=== PATIENT | male | born 1960 | race Caucasian/White ===

== ENCOUNTER 2018-06-21 18:33 | Emergency (ER) | payer OTHER ==
[2018-06-21] MEDS ORDERED: Tetracaine 0.5% Ophth Soln 15 mL Soln RIGHT EYE ONE (19:27)
[2018-06-21] MEDS ORDERED: Fluorescein Sodium 1 mg Ophth Strip RIGHT EYE ONE (19:28)
[2018-06-21] MEDS ORDERED: Fluorescein Sodium 1 mg Ophth Strip ONE (19:37)
[2018-06-21] MEDS ORDERED: TETRACAINE HCL 0.5% OPHTH SOLN 4ML BOTTLE ONE (19:38)
[2018-06-21] MEDS ORDERED: Dacriose Ophth Soln 120 mL Bottle ONE (19:45)
--- NOTE | 2018-06-21 19:48 | ED Physician Chart ---
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 Allergies:: Allergies Allergy/AdvReac Type Severity Reaction Status Date / Time No Known Allergies Allergy Verified 06/21/18 19:21 Vitals:: Vital Signs - 8 hr 06/21/18 19:24 Temp 98.5 F HR 94 RR 16 BP 157/79 O2 Sat % 100 Historian:: Patient Review:: Nurse's Note Reviewed ED Review of Systems - Review of Systems General/Constitutional: No fever, No chills, No weight loss, No weakness, No diaphoresis, No edema, No loss of appetite Skin: No skin lesions, No rash, No bruising Head: No headache, No light-headedness Eyes: No loss of vision, Pain, No diplopia, Other (foreign body sensation) ENT: No earache, No nasal drainage, No sore throat, No tinnitus Neck: No neck pain, No swelling, No thyromegaly, No stiffness, No mass noted Cardio Vascular: No chest pain, No palpitations, No PND, No orthopnea, No edema Pulmonary: No SOB, No cough, No sputum, No wheezing GI: No nausea, No vomiting, No diarrhea, No pain, No melena, No hematochezia, No constipation, No hematemesis G/U: No dysuria, No frequency, No hematuria Musculoskeletal: No bone or joint pain, No back pain, No muscle pain Endocrine: No polyuria, No polydipsia Psychiatric: No prior psych history, No depression, No anxiety, No suicidal ideation Hematopoietic: No bruising, No lymphadenopathy Allergic/Immuno: No urticaria, No angioedema Neurological: No syncope, No focal symptoms, No weakness, No paresthesia, No headache, No seizure, No dizziness, No confusion, No vertigo ED Past Medical History - Past Medical History Obtainable: Yes Past Medical History: No significant medical hx Family Medical History - Family Member Mother Ethnicity: Living Status: Hx Family Stroke: Yes ED Physical Exam - Physical Examination General/Constitutional: Awake, Well-developed, well-nourished, Alert, GCS 15, Non-toxic appearing, Ambulatory Other Gen/Cons comments:: in pain with respect to his right eye. Head: Atraumatic Eyes: PERRL, EOMI Other Eyes comments:: Right sclerae injected. Right eye fluorescin uptake at 12 oclock that measures 2 mm in length by 1 mm in width. Lower lid: no foreign body. Upper lid: small piece of what appears to be dirt (not metal) that is present and was removed. photophobic on the right. Skin: Nl inspection, No rash, No skin lesions, No ecchymosis, Well hydrated, No lymphadenopathy ENMT: External ears, nose nl Neck: Nontender, No nuchal rigidity, No stridor Respiratory: Nl effort/Exclusion ED Assessment - Procedures Procedures:: fluorescin test uptake at 12 p.m that measures 2 mm x 1 mm. Removal of dirt/foreign body with a moistened q tip from underneath the upper lid that was everted. ED Septic Shock - . Is Septic Shock (SBP<90, OR Lactate>4 mmol\L) present?: No - <6hrs of presentation: Vital Signs: Vital Signs - 8 hr 06/21/ 19:24 Temp 98.5 F HR 94 RR 16 BP 157/79 O2 Sat % 100 ED Reassessment (Disposition) - Reassessment Reassessment Condition:: Improved - Diagnosis Diagnosis:: Right corneal abrasion Right upper lid foreign body/dirt (which was removed with a moistened q tip). - Aftercare/Follow up Instructions Aftercare/Follow-Up Instructions:: Refer to Discharge Instructions Notes:: follow up with an fat pressroom worker since this is a 2 mm x 1 mm corneal abrasion at 12 oclock to prevent this from progressing to an ulcer. Medication Prescribed:: Ciprofloxacin eye drops. - Patient Disposition Discharge/Transfer:: Home Condition at Disposition:: Stable, Improved
[2018-06-21] MEDS ORDERED: Dacriose Ophth Soln 120 mL Bottle RIGHT EYE ONE (20:41)
== END 2018-06-21 21:00 | disposition home or self-care (01) ==
LOC: ER 18:33
DX: T15.01XA Foreign body in cornea, right eye, initial encounter (principal); X58.XXXA Exposure to other specified factors, initial encounter; Y93.89 Activity, other specified; Y92.89 Other specified places as the place of occurrence of the external cause; Y99.0 Civilian activity done for income or pay
CPT/HCPCS: Z7502

== ENCOUNTER 2018-12-29 12:18 | Inpatient (IN) | payer BC, OTHER ==
[2018-12-29] MEDS ORDERED: Sodium Chloride 0.9% 1,000 ML IV ONE (12:21)
[2018-12-29 12:48] LABS: % BASOPHILS 0.7 % (0.0-2.0); % EOSINOPHILS 0.9 % (0.0-5.0); % LYMPHOCYTES 21.1 % (20.0-50.0); % MONOCYTES 5.3 % (2.0-10.0); BASOPHILE ABSOLUTE 0.1 Th/cumm (0-0.2); EOSINOPHILE ABSOLUTE 0.1 Th/cmm (0.1-0.4); HEMATOCRIT 45.6 % (41.0-60); HEMOGLOBIN 15.4 gm/dL (12-16); LYMPHOCYTE ABSOLUTE 1.7 Th/cmm (1.5-3.0); MEAN CELL VOLUME 88.9 fl (80-99); MEAN CORPUSCULAR HGB CONC 33.7 pg (28.0-36.0); MEAN PLATELET VOLUME 8.1 fl; MONOCYTE ABSOLUTE 0.4 Th/cmm (0.3-1.0); NEUTROPHILE ABSOLUTE 5.9 Th/cmm (1.8-8.0); PLATELET COUNT 219 Th/cmm (150-400); RED BLOOD COUNT 5.13 Mil/cmm (4.30-5.70); RED CELL DISTRIBUTION WIDTH 11.8 % (11.5-20.0); WHITE BLOOD COUNT 8.2 Th/cmm (4.8-10.8)
[2018-12-29 12:59] LABS: INR 0.97 (0.5-1.4); PROTHROMBIN TIME (TEST) 10.1 SECONDS (9.5-11.5)
[2018-12-29 13:08] LABS: AMYLASE SERUM 51 U/L (29-103); LIPASE 18 U/L (11-82)
[2018-12-29 13:10] LABS: ALB/GLOB RATIO 1.3 (1.0-1.8); ALBUMIN 4.3 gm/dL (4.2-5.5); ALKALINE PHOSPHATASE 75 U/L (34-104); ANION GAP 17.6 (7.0-16.0); BILIRUBIN,TOTAL 0.5 mg/dL (0.3-1.0); BUN - UREA NITROGEN 16 mg/dL (7-25); CALCIUM SERUM 9.5 mg/dL (8.6-10.3); CARBON DIOXIDE 21.8 mEq/L (21.0-31.0); CHLORIDE 99 mEq/L (98-107); CHOLESTEROL 256 mg/dL (<200); CREATININE - SERUM 0.9 mg/dL (0.7-1.3); CREATININE KINASE 132 U/L (30-223); GFR AFRICAN-AMERICAN > 60.0 ml/min (>90); GFR NON AFRICAN-AMERICAN > 60.0 ml/min; GLUCOSE 357 mg/dL (70-105); HDL -HIGH DENSITY LIPOPROTEIN 57 mg/dL (23-92); POTASSIUM SERUM 3.4 mEq/L (3.5-5.1); SGOT 14 U/L (13-39); SGPT/ALT 18 U/L (7-52); SODIUM SERUM 135 mEq/L (136-145); TOTAL PROTEIN,SERUM 7.6 gm/dL (6.0-8.3); TRIGLYCERIDES 125 mg/dL (<150)
[2018-12-29 13:16] LABS: DDIMER QUANT < 100 ng/mL (100-400)
[2018-12-29 14:08] LABS: URINE SOURCE CLEAN C
[2018-12-29 14:11] LABS: URINE BILIRUBIN NEGATIVE (NEGATIVE); URINE BLOOD NEGATIVE (NEGATIVE); URINE GLUCOSE (UA) >=1000 mg/dL (NEGATIVE); URINE KETONE 15 mg/dL (NEGATIVE); URINE LEUKOCYTE ESTERASE NEGATIVE (NEGATIVE); URINE MICROSCOPIC INDICATED? YES; URINE NITRATE NEGATIVE (NEGATIVE); URINE PH 6.5 (4.6 - 8.0); URINE PROTEIN 30 mg/dL (NEGATIVE); URINE UROBILINOGEN 0.2 E.U./dL (0.2 - 1.0)
[2018-12-29 14:15] LABS: URINE COLOR YELLOW
[2018-12-29 14:16] LABS: URINE CLARITY CLEAR (CLEAR)
[2018-12-29 14:19] LABS: URINE BACTERIA OCCASIONAL /hpf (NONE SEEN); URINE EPITHELIAL CELLS FEW /lpf (FEW); URINE WBC 0-2 /hpf (0-5)
--- NOTE | 2018-12-29 14:27 | ED Physician Chart ---
ED Chief Complaint/HPI - Patient Information Date Seen:: 12/29/18 Time Seen:: 12:35 Chief Complaint:: Abdominal Pain History of Present Illness:: onset x 3 days of intermittent, crampy, diffuse abdominal pain, N/V/D, hematemesis, weakness, dizziness, vertigo, and fatigue; pt denies trauma, h/as, neck pain, cough, C/P, SOB, A/C, or urinary s/s Allergies:: Allergies Allergy/AdvReac Type Severity Reaction Status Date / Time No Known Allergies Allergy Verified 06/21/18 19:21 Vitals:: Vital Signs - 8 hr 12/29/18 12/29/18 12:36 12:47 Temp 97.4 F HR 99 84 RR 23 18 BP 174/98 174/98 O2 Sat % 100 98 Historian:: Patient, Friend Review:: Nurse's Note Reviewed, Old Chart Reviewed ED Review of Systems - Review of Systems General/Constitutional: No fever, No chills, No weight loss, No weakness, No diaphoresis, No edema, No loss of appetite Skin: No skin lesions, No rash, No bruising Head: No headache, No light-headedness Eyes: No loss of vision, No pain, No diplopia ENT: No earache, No nasal drainage, No sore throat, No tinnitus Neck: No neck pain, No swelling, No thyromegaly, No stiffness, No mass noted Cardio Vascular: No chest pain, No palpitations, No PND, No orthopnea, No edema Pulmonary: No SOB, No cough, No sputum, No wheezing GI: No nausea, No vomiting, No diarrhea, No pain, No melena, No hematochezia, No constipation, No hematemesis G/U: No dysuria, No frequency, No hematuria, No nacturia Musculoskeletal: No bone or joint pain, No back pain, No muscle pain Endocrine: No polyuria, No polydipsia Psychiatric: No prior psych history, No depression, No anxiety, No suicidal ideation, No homicidal ideation, No auditory hallucination, No visual hallucination Hematopoietic: No bruising, No lymphadenopathy Allergic/Immuno: No urticaria, No angioedema Neurological: No syncope, No focal symptoms, No weakness, No paresthesia, No headache, No seizure, No dizziness, No confusion, No vertigo ED Past Medical History - Past Medical History Obtainable: Yes Past Medical History: DM Family History: Diabetes Melitus, HTN Social History: Non Smoker, No Alcohol, No Drug Use, Surgical History: None Psychiatricy History: None Medication: Reviewed Family Medical History - Family Member Mother History Unknown: Yes Ethnicity: Living Status: Hx Family Stroke: Yes ED Physical Exam - Physical Examination General/Constitutional: Awake, Well-developed, well-nourished, Alert, No distress, GCS 15, Non-toxic appearing, Ambulatory Head: Atraumatic Eyes: Lids, conjuctiva normal, PERRL, EOMI Skin: Nl inspection, No rash, No skin lesions, No ecchymosis, Well hydrated, No lymphadenopathy ENMT: External ears, nose nl, TM canals nl, Nasal exam nl, Lips, teeth, gums nl , Oropharynx nl, Tonsils nl Neck: Nontender, Full ROM w/o pain, No JVD, No nuchal rigidity, No bruit, No mass, No stridor Other Neck comments:: supple; no meningeal signs; no cervical tenderness Respiratory: Nl effort/Exclusion, Clear to Auscultation, No Wheeze/Rhonchi/Rales Cardio Vascular: RRR, No murmur, gallop, rubs, NL S1 S2, Carotid/Femoral/Distal pulses equal bilaterally GI: No tenderness/rebounding/guarding, No organomegaly, No hernia, Normal BS's, Nondistended, No mass/bruits, No McBurney tenderness, Rectum exam nl Other GI comments:: no pulsatile masses : No CVA tenderness Extremities: No tenderness or effusion, Full ROM, normal strength in all extremities, No edema, Normal digits & nails Neuro/Psych: Alert/oriented, DTR's symmetric, Normal sensory exam, Normal motor strength, Judgement/insight normal, Mood normal, Normal gait, No focal deficits Misc: Normal back, No paraspinal tenderness ED Labs/Radiology/EKG Results - Lab Results Results: Laboratory Tests 12/29/18 12/29/18 12/29/18 12:34 12:34 12:34 WBC 8.2 RBC 5.13 Hgb 15.4 Hct 45.6 MCV 88.9 MCH 30.0 MCHC Differential 33.7 RDW 11.8 Plt Count 219 MPV 8.1 Neutrophils % 72.0 Lymphocytes % 21.1 Monocytes % 5.3 Eosinophils % 0.9 Basophils % 0.7 PT 10.1 INR 0.97 D-Dimer < 100 L Sodium 135 L Potassium 3.4 L Chloride 99 Carbon Dioxide 21.8 Anion Gap 17.6 H BUN 16 Creatinine 0.9 Est GFR ( Amer) > 60.0 Est GFR (Non-Af Amer) > 60.0 BUN/Creatinine Ratio 17.8 Glucose 357 H Calcium 9.5 Total Bilirubin 0.5 AST 14 ALT 18 Alkaline Phosphatase 75 Creatine Kinase 132 Troponin I B-Natriuretic Peptide Total Protein 7.6 Albumin 4.3 Globulin 3.3 Albumin/Globulin Ratio 1.3 Triglycerides 125 Cholesterol 256 H LDL Cholesterol Direct 176 HDL Cholesterol 57 Amylase Lipase Urine Source Urine Color Urine Clarity Urine pH Ur Specific Homer Urine Protein Urine Glucose (UA) Urine Ketones Urine Blood Urine Nitrate Urine Bilirubin Urine Urobilinogen Ur Leukocyte Esterase Urine RBC Urine WBC Ur Epithelial Cells Urine Bacteria 12/29/18 12/29/18 12/29/18 12:34 12:34 12:34 WBC RBC Hgb Hct MCV MCH MCHC Differential RDW Plt Count MPV Neutrophils % Lymphocytes % Monocytes % Eosinophils % Basophils % PT INR D-Dimer Sodium Potassium Chloride Carbon Dioxide Anion Gap BUN Creatinine Est GFR ( Amer) Est GFR (Non-Af Amer) BUN/Creatinine Ratio Glucose Calcium Total Bilirubin AST ALT Alkaline Phosphatase Creatine Kinase Troponin I 0.01 B-Natriuretic Peptide 9.7 Total Protein Albumin Globulin Albumin/Globulin Ratio Triglycerides Cholesterol LDL Cholesterol Direct HDL Cholesterol Amylase 51 Lipase 18 Urine Source Urine Color Urine Clarity Urine pH Ur Specific Homer Urine Protein Urine Glucose (UA) Urine Ketones Urine Blood Urine Nitrate Urine Bilirubin Urine Urobilinogen Ur Leukocyte Esterase Urine RBC Urine WBC Ur Epithelial Cells Urine Bacteria 12/29/18 13:30 WBC RBC Hgb Hct MCV MCH MCHC Differential RDW Plt Count MPV Neutrophils % Lymphocytes % Monocytes % Eosinophils % Basophils % PT INR D-Dimer Sodium Potassium Chloride Carbon Dioxide Anion Gap BUN Creatinine Est GFR ( Amer) Est GFR (Non-Af Amer) BUN/Creatinine Ratio Glucose Calcium Total Bilirubin AST ALT Alkaline Phosphatase Creatine Kinase Troponin I B-Natriuretic Peptide Total Protein Albumin Globulin Albumin/Globulin Ratio Triglycerides Cholesterol LDL Cholesterol Direct HDL Cholesterol Amylase Lipase Urine Source CLEAN C Urine Color YELLOW Urine Clarity CLEAR Urine pH 6.5 Ur Specific Homer 1.015 Urine Protein 30 H Urine Glucose (UA) >=1000 H Urine Ketones 15 H Urine Blood NEGATIVE Urine Nitrate NEGATIVE Urine Bilirubin NEGATIVE Urine Urobilinogen 0.2 Ur Leukocyte Esterase NEGATIVE Urine RBC 2-5 H Urine WBC 0-2 Ur Epithelial Cells FEW Urine Bacteria OCCASIONAL Comments:: Reviewed - Radiology Results Comments:: NAD - EKG Interpretations EKG Time:: 12:43 Rate & Rhythm: 85; NSR Comments:: non-specific st-t changes ED Septic Shock - . Is Septic Shock (SBP<90, OR Lactate>4 mmol\L) present?: No - <6hrs of presentation: Vital Signs: Vital Signs - 8 hr 12/29/18 12/29/18 12:36 12:47 Temp 97.4 F HR 99 84 RR 23 18 BP 174/98 174/98 O2 Sat % 100 98 ED Reassessment (Disposition) - Reassessment Reassessment Condition:: Improved - Diagnosis Diagnosis:: Dizziness; Vertigo; N/V/D; GI Bleed; Abdominal Pain; AGE; Dehydration; UTI; Hypokalemia; Hypertension; DM; Hyperglycemia; Hyperlipidemia - Aftercare/Follow up Instructions Aftercare/Follow-Up Instructions:: Counseled pt regarding lab results/diagnosis & need follow up, Counseled pt & family regarding lab results/diagnosis & need follow up - Patient Disposition Discharge/Transfer:: Acute Care w/in this hosp Accepting Physician:: Dr. Gan Time Called:: 1400 Time Responded:: 14:00 Admitted to:: Telemetry Spoke to:: Dr. Gan Admitting Medical Physician:: Dr. Gan Condition at Disposition:: Stable, Improved
[2018-12-29] MEDS ORDERED: cefTRIAXone 1 GM in Sodium Chloride 0.9% 50 ML IV ONE (14:34)
[2018-12-29] MEDS ORDERED: Potassium Chloride 20 mEq ER Tab PO ONE ×2 (14:36→15:00)
[2018-12-29] MEDS ORDERED: INSULIN HUMAN REGULAR 100 UNITS/ML UNIT SUBQ ONE (14:36)
[2018-12-29] MEDS ORDERED: NITROGLYCERIN OINT 2% 1 INCH PACKET TP STA (16:36)
[2018-12-29] MEDS ORDERED: NITROGLYCERIN OINT 2% 1 INCH PACKET TP ONE (16:42)
[2018-12-29 17:30] VITALS: BP 173/94
[2018-12-29] MEDS ORDERED: Morphine Sulfate 2 mg/mL 1mL Syr IVP PRN ×2 (18:19→18:20)
[2018-12-29] MEDS ORDERED: D5-0.45NS 1,000 ML IV SCH (19:00)
[2018-12-29] MEDS: INSULIN LISPRO 100 UNIT/ML VIAL SUBQ SCH (21:37)
[2018-12-30] MEDS ORDERED: INSULIN LISPRO 100 UNIT/ML VIAL SUBQ SCH
[2018-12-30 05:39] LABS: INR 0.98 (0.5-1.4); PROTHROMBIN TIME (TEST) 10.2 SECONDS (9.5-11.5)
[2018-12-30 05:42] LABS: ANION GAP 9.5 (7.0-16.0); BUN - UREA NITROGEN 13 mg/dL (7-25); CALCIUM SERUM 9.1 mg/dL (8.6-10.3); CARBON DIOXIDE 26.7 mEq/L (21.0-31.0); CHLORIDE 103 mEq/L (98-107); CREATININE - SERUM 0.9 mg/dL (0.7-1.3); GFR AFRICAN-AMERICAN > 60.0 ml/min (>90); GFR NON AFRICAN-AMERICAN > 60.0 ml/min; GLUCOSE 286 mg/dL (70-105); POTASSIUM SERUM 4.2 mEq/L (3.5-5.1); SODIUM SERUM 135 mEq/L (136-145)
[2018-12-30 05:46] LABS: % BASOPHILS 0.8 % (0.0-2.0); % EOSINOPHILS 1.3 % (0.0-5.0); % LYMPHOCYTES 20.5 % (20.0-50.0); % MONOCYTES 7.1 % (2.0-10.0); % NEUTROPHILS 70.3 % (40.0-80.0); BASOPHILE ABSOLUTE 0.1 Th/cumm (0-0.2); EOSINOPHILE ABSOLUTE 0.1 Th/cmm (0.1-0.4); HEMATOCRIT 43.5 % (41.0-60); HEMOGLOBIN 14.2 gm/dL (12-16); LYMPHOCYTE ABSOLUTE 2.1 Th/cmm (1.5-3.0); MEAN CELL VOLUME 89.7 fl (80-99); MEAN CORPUSCULAR HEMOGLOBIN 29.3 pg (26.0-30.0); MEAN CORPUSCULAR HGB CONC 32.6 pg (28.0-36.0); MONOCYTE ABSOLUTE 0.7 Th/cmm (0.3-1.0); NEUTROPHILE ABSOLUTE 7.1 Th/cmm (1.8-8.0); PLATELET COUNT 229 Th/cmm (150-400); RED BLOOD COUNT 4.85 Mil/cmm (4.30-5.70); RED CELL DISTRIBUTION WIDTH 11.9 % (11.5-20.0); WHITE BLOOD COUNT 10.1 Th/cmm (4.8-10.8)
[2018-12-30] MEDS: INSULIN LISPRO 100 UNIT/ML VIAL SUBQ SCH (06:43)
--- NOTE | 2018-12-30 08:31 | Diagnostic Imaging Report ---
CHEST X-RAY: AP view INDICATION: Cough COMPARISON: None FINDINGS: Mild chronic lung changes are noted. There is elevation of right hemidiaphragm. There is no focal consolidation or pleural effusions The heart is normal in size. Degenerative changes of the spine are noted. IMPRESSION: Mild chronic lung changes. No focal consolidation identified. Elevation of the right hemidiaphragm.
--- NOTE | 2018-12-30 09:13 | Diagnostic Imaging Report ---
CT abdomen and pelvis without intravenous contrast Indication: Abdominal pain Comparison: None, Technique: Axial images were obtained from the lung bases to the bilateral proximal femurs without IV contrast. Coronal reconstructions were made. total DLP: 520, CTDI9.9 FINDINGS: Hypoventilatory and atelectatic changes of the lung bases are noted. Assessment of the solid organs is limited due to lack of IV contrast. There is fatty infiltration of the liver. No focal lesions. Mild distended gallbladder is noted with no radiopaque gallstones identified. No focal splenic lesions. Mild pancreatic gland atrophy is noted with no focal lesions. No focal adrenal lesions. Nonspecific bowel perinephric inflammatory changes are noted. No hydronephrosis or nephrolithiasis. Distended urinary bladder is seen with urinary bladder wall thickening greatest anteriorly. Mild prominent prostate gland is noted. There is copious amount of stool throughout the colon. No appendicitis. Nonspecific air distended loops of small bowel are seen along left hemiabdomen. No free air free fluid. Moderate atherosclerosis is noted. There is partial lumbarization of S1. There are pars defects at L5/S1 with 5 mm anterolisthesis seen at this level. Diffuse degenerative changes spine are noted. IMPRESSION: Copious stool throughout the colon. Nonspecific gas-filled small bowel along the left hemiabdomen. Mild ileus may be considered Urinary bladder wall thickening greatest anteriorly. Inflammatory or infiltrative process cannot be excluded, please correlate clinically Mildly prominent prostate gland. Mild distended gallbladder. No evidence of Radiopaque gallstones. Consider follow-up with ultrasound Hepatic steatosis. Atherosclerotic vascular disease. Pars defects at L5/S1 with 5 mm anterolisthesis at this level. There is also partial lumbarization of S1. Diffuse degenerative changes are noted including bilateral neural foraminal narrowing at L5/S1.
[2018-12-30] MEDS: INSULIN LISPRO SLIDING SCALE 100 UNITS/ML UNIT SUBQ SCH ×2 (17:48→20:47)
--- NOTE | 2018-12-30 18:55 | History & Physical ---
ADMIT DATE: 12/30/2018 CHIEF COMPLAINT: Abdominal pain. HISTORY OF PRESENT ILLNESS: This is a 58-year-old male with a 3-day history of abdominal pain according to the patient. Three days ago, he started to have intermittent crampy like abdominal pain associated with constipation. Per daughter at bedside, the patient has not had a bowel movement for about 3 to 4 days. No reports of any nausea or vomiting. PAST MEDICAL HISTORY: Diabetes. FAMILY HISTORY: Noncontributory. SOCIAL HISTORY: The patient denies any alcohol, illicit drug use, tobacco smoking. SURGICAL HISTORY: None. MEDICATIONS: See medication list. REVIEW OF SYSTEMS: GENERAL: Denies any fever or chills. CARDIOVASCULAR: Denies any chest pain. RESPIRATORY: Denies any shortness of breath. GASTROINTESTINAL: The patient complains of abdominal pain. GENITOURINARY: Denies increased frequency or dysuria. NEUROLOGIC: Denies headaches, seizure, or syncope. All systems are reviewed and are negative. PHYSICAL EXAMINATION: GENERAL: The patient is a well-developed, well-nourished, in no apparent distress. VITAL SIGNS: Temperature 97.2, heart rate 82, blood pressure 144/85, respirations 70, O2 98%. HEENT: Head normocephalic, atraumatic. NECK: Supple. No mass. LUNGS: Clear bilaterally. ABDOMEN: Soft, nontender. LABORATORY DATA: WBC 10.1, H and H 14.2 and 42.5, platelet of 229. Sodium 135, potassium 4.2, chloride 103, BUN 13, creatinine 0.9. DIAGNOSTIC DATA: The patient had a CT of the abdomen and pelvis done. IMPRESSION: Copious stool throughout the colon, nonspecific gas filled small bowel along the left hemiabdomen, mild ileus may be considered, urinary bladder wall thickening, greatest anteriorly, mild prominent prostate gland, mild distended gallbladder, no evidence of radiopaque gallstones. Consider follow up with ultrasound, hepatic steatosis, atherosclerotic vascular disease. ASSESSMENT: Abdominal pain, weakness, constipation, diabetes. PLAN: The patient to be admitted to the telemetry unit. We will get GI consultation. We will keep the patient n.p.o. for now, IV fluids for hydration. We will monitor the patient's glucose level. We will continue to monitor this patient. JOB# [id number]
[2018-12-31 05:26] LABS: % BASOPHILS 0.8 % (0.0-2.0); % EOSINOPHILS 0.9 % (0.0-5.0); % LYMPHOCYTES 24.6 % (20.0-50.0); % MONOCYTES 5.9 % (2.0-10.0); % NEUTROPHILS 67.8 % (40.0-80.0); BASOPHILE ABSOLUTE 0.1 Th/cumm (0-0.2); EOSINOPHILE ABSOLUTE 0.1 Th/cmm (0.1-0.4); HEMATOCRIT 43.8 % (41.0-60); HEMOGLOBIN 14.7 gm/dL (12-16); LYMPHOCYTE ABSOLUTE 2.3 Th/cmm (1.5-3.0); MEAN CELL VOLUME 89.2 fl (80-99); MEAN CORPUSCULAR HGB CONC 33.6 pg (28.0-36.0); MEAN PLATELET VOLUME 8.2 fl; MONOCYTE ABSOLUTE 0.6 Th/cmm (0.3-1.0); NEUTROPHILE ABSOLUTE 6.4 Th/cmm (1.8-8.0); PLATELET COUNT 243 Th/cmm (150-400); RED BLOOD COUNT 4.91 Mil/cmm (4.30-5.70); RED CELL DISTRIBUTION WIDTH 11.6 % (11.5-20.0); WHITE BLOOD COUNT 9.5 Th/cmm (4.8-10.8)
[2018-12-31 05:40] LABS: INR 1.03 (0.5-1.4); PROTHROMBIN TIME (TEST) 10.7 SECONDS (9.5-11.5)
[2018-12-31 05:43] LABS: ANION GAP 12.3 (7.0-16.0); BUN - UREA NITROGEN 10 mg/dL (7-25); CALCIUM SERUM 8.7 mg/dL (8.6-10.3); CARBON DIOXIDE 23.4 mEq/L (21.0-31.0); CHLORIDE 106 mEq/L (98-107); CREATININE - SERUM 0.7 mg/dL (0.7-1.3); GFR AFRICAN-AMERICAN > 60.0 ml/min (>90); GFR NON AFRICAN-AMERICAN > 60.0 ml/min; GLUCOSE 210 mg/dL (70-105); POTASSIUM SERUM 3.7 mEq/L (3.5-5.1); SODIUM SERUM 138 mEq/L (136-145)
--- NOTE | 2018-12-31 06:30 | Consultation ---
DATE OF CONSULTATION: 12/30/2018 REQUESTING PHYSICIAN: Donaldo Gan MD. REASON FOR CONSULTATION: Nausea and vomiting and vague abdominal pain with weight loss. HISTORY OF PRESENT ILLNESS: A 58-year-old male, otherwise healthy, presenting with 1-day history of nausea and vomiting x 9 episodes after eating breakfast. A coworker next to him with the same food did not have any similar symptoms. The patient's nausea and vomiting improved after a few hours of symptoms. He has been essentially symptom free for the past 12 hours. He was admitted for dehydration. CT here showed copious stool throughout the colon, urinary bladder wall thickening, mildly prominent prostate gland, mildly distended gallbladder without stones, hepatic steatosis and atherosclerotic vascular disease. He has never had a previous endoscopy or colonoscopy. He denies GI bleeding. He has had 2 weeks of postprandial epigastric pain. Per his family, he has also lost about 40 pounds over the past 6 months, although his appetite has remained stable. PAST MEDICAL HISTORY: As above. MEDICATIONS: Here are IV fluids, hydralazine p.r.n., insulin sliding scale, morphine p.r.n., Zofran p.r.n. and 40 mg of IV Protonix daily. ALLERGIES: None. SOCIAL HISTORY: No tobacco. Daily alcohol 1-2 drinks a day. No drug use. FAMILY HISTORY: Noncontributory. REVIEW OF SYSTEMS: Negative. PHYSICAL EXAMINATION: VITAL SIGNS: Temperature of 97.1, blood pressure 111/76, pulse of 85, respirations 17, O2 sat is 99% on room air. GENERAL: The patient is a well-developed, well-nourished male in no acute distress. HEENT: Sclerae nonicteric. Oropharynx is clear. CARDIOVASCULAR: Regular rate and rhythm. LUNGS: Clear to auscultation bilaterally. ABDOMEN: Soft, nontender, nondistended, normoactive bowel sounds. EXTREMITIES: No clubbing, cyanosis or edema. RECTAL: Deferred. LABORATORY DATA AND IMAGING: WBC 10.1, hemoglobin 14.2, platelet count 229. INR is normal. Creatinine is normal. Liver labs are normal. Amylase and lipase normal. IMPRESSION: Vague abdominal pain with nausea and vomiting and recent onset of weight loss. Acute nausea and vomiting may be from acute gastroenteritis, perhaps from food poisoning. More chronically, the patient has had some postprandial pain that may be from peptic ulcer disease or gastritis and less likely occult neoplasm. The patient has also had weight loss for the past few months, and this also needs to be worked up. RECOMMENDATIONS: 1. Upper endoscopy and colonoscopy tomorrow. 2. Protonix. 3. Zofran p.r.n. 4. Bowel preparation tonight. Thank you Dr. Donaldo Gan for involving us in the care of your patient. If you have any further questions, please call us. JOB# [id number]
[2018-12-31] MEDS: INSULIN LISPRO SLIDING SCALE 100 UNITS/ML UNIT SUBQ SCH ×2 (07:18→12:26)
[2018-12-31] MEDS ORDERED: Lidocaine 2% Gel 5 mL TP ONE (09:00)
[2018-12-31] MEDS ORDERED: Simethicone 20 mg/0.3 mL 30mL Bottle ONE (09:03)
[2018-12-31] MEDS ORDERED: Propofol 10 mg/mL 20mL Vial **SURGERY USE ONLY IV ONE (10:15)
--- NOTE | 2018-12-31 11:40 | Internal Medicine Prog Note ---
Internal Medicine Subjective - Subjective Service Date: 12/31/18 Patient seen and examined:: with staff, chart reviewed Patient is:: awake, verbal Patient Complaints of:: constipation, bloated Per staff patient has:: no adverse event, no episodes of fall Internal Medicine Objective - Results Result Diagrams: 12/31/18 04:55 12/31/18 04:55 Recent Labs: Laboratory Last Values WBC 9.5 Th/cmm (4.8-10.8) 12/31/18 04:55 RBC 4.91 Mil/cmm (4.30-5.70) 12/31/18 04:55 Hgb 14.7 gm/dL (12-16) 12/31/18 04:55 Hct 43.8 % (41.0-60) 12/31/18 04:55 MCV 89.2 fl (80-99) 12/31/18 04:55 MCH 30.0 pg (26.0-30.0) 12/31/18 04:55 MCHC Differential 33.6 pg (28.0-36.0) 12/31/18 04:55 RDW 11.6 % (11.5-20.0) 12/31/18 04:55 Plt Count 243 Th/cmm (150-400) 12/31/18 04:55 MPV 8.2 fl 12/31/18 04:55 Neutrophils % 67.8 % (40.0-80.0) 12/31/18 04:55 Lymphocytes % 24.6 % (20.0-50.0) 12/31/18 04:55 Monocytes % 5.9 % (2.0-10.0) 12/31/18 04:55 Eosinophils % 0.9 % (0.0-5.0) 12/31/18 04:55 Basophils % 0.8 % (0.0-2.0) 12/31/18 04:55 PT 10.7 SECONDS (9.5-11.5) 12/31/18 04:55 INR 1.03 (0.5-1.4) 12/31/18 04:55 PTT (Actin FS) 23.0 SECONDS (26.0-38.0) L 12/30/18 04:50 D-Dimer < 100 ng/mL (100-400) L 12/29/18 12:34 Sodium 138 mEq/L (136-145) 12/31/18 04:55 Potassium 3.7 mEq/L (3.5-5.1) 12/31/18 04:55 Chloride 106 mEq/L (98-107) 12/31/18 04:55 Carbon Dioxide 23.4 mEq/L (21.0-31.0) 12/31/18 04:55 Anion Gap 12.3 (7.0-16.0) 12/31/18 04:55 BUN 10 mg/dL (7-25) 12/31/18 04:55 Creatinine 0.7 mg/dL (0.7-1.3) 12/31/18 04:55 Est GFR ( Amer) > 60.0 ml/min (>90) 12/31/18 04:55 Est GFR (Non-Af Amer) > 60.0 ml/min 12/31/18 04:55 BUN/Creatinine Ratio 14.3 12/31/18 04:55 Glucose 210 mg/dL (70-105) H 12/31/18 04:55 POC Glucose 199 MG/DL (70 - 105) H 12/31/18 06:41 Calcium 8.7 mg/dL (8.6-10.3) 12/31/18 04:55 Total Bilirubin 0.5 mg/dL (0.3-1.0) 12/29/18 12:34 AST 14 U/L (13-39) 12/29/18 12:34 ALT 18 U/L (7-52) 12/29/18 12:34 Alkaline Phosphatase 75 U/L (34-104) 12/29/18 12:34 Creatine Kinase 132 U/L (30-223) 12/29/18 12:34 Troponin I 0.01 ng/mL (0.01-0.05) 12/29/18 12:34 B-Natriuretic Peptide 9.7 pg/mL (5.0-100.0) 12/29/18 12:34 Total Protein 7.6 gm/dL (6.0-8.3) 12/29/18 12:34 Albumin 4.3 gm/dL (4.2-5.5) 12/29/18 12:34 Globulin 3.3 gm/dL 12/29/18 12:34 Albumin/Globulin Ratio 1.3 (1.0-1.8) 12/29/18 12:34 Triglycerides 125 mg/dL (<150) 12/29/18 12:34 Cholesterol 256 mg/dL (<200) H 12/29/18 12:34 LDL Cholesterol Direct 176 mg/dL (75-193) 12/29/18 12:34 HDL Cholesterol 57 mg/dL (23-92) 12/29/18 12:34 Amylase 51 U/L (29-103) 12/29/18 12:34 Lipase 18 U/L (11-82) 12/29/18 12:34 Urine Source CLEAN C 12/29/18 13:30 Urine Color YELLOW 12/29/18 13:30 Urine Clarity CLEAR (CLEAR) 12/29/18 13:30 Urine pH 6.5 (4.6 - 8.0) 12/29/18 13:30 Ur Specific [place] 1.015 (1.005-1.030) 12/29/18 13:30 Urine Protein 30 mg/dL (NEGATIVE) H 12/29/18 13:30 Urine Glucose (UA) >=1000 mg/dL (NEGATIVE) H 12/29/18 13:30 Urine Ketones 15 mg/dL (NEGATIVE) H 12/29/18 13:30 Urine Blood NEGATIVE (NEGATIVE) 12/29/18 13:30 Urine Nitrate NEGATIVE (NEGATIVE) 12/29/18 13:30 Urine Bilirubin NEGATIVE (NEGATIVE) 12/29/18 13:30 Urine Urobilinogen 0.2 E.U./dL (0.2 - 1.0) 12/29/18 13:30 Ur Leukocyte Esterase NEGATIVE (NEGATIVE) 12/29/18 13:30 Urine RBC 2-5 /hpf (0-5) H 12/29/18 13:30 Urine WBC 0-2 /hpf (0-5) 12/29/18 13:30 Ur Epithelial Cells FEW /lpf (FEW) 12/29/18 13:30 Urine Bacteria OCCASIONAL /hpf (NONE SEEN) 12/29/18 13:30 - Physical Exam Vitals and I&O: Vital Signs Temp 97.9 F 12/31/18 08:00 Pulse 88 12/31/18 08:00 Resp 18 12/31/18 08:00 BP 156/96 12/31/18 08:00 Pulse Ox 100 12/31/18 08:00 Active Medications: Current Medications Hydralazine HCl (Apresoline 20 Mg/Ml) 10 mg IV Q4HR PRN PRN Reason: SBP ABOVE 160 Stop: 02/27/19 18:16 Dextrose/Sodium Chloride (D5-0.45ns) 1,000 mls @ 50 mls/hr IV .Q20H [facility] Stop: 02/27/19 18:59 Last Admin: 12/29/18 21:37 Dose: 50 mls/hr Insulin Human Lispro (Humalog Insulin Sliding Scale) 0 units SUBQ [facility]; Protocol Stop: 02/28/19 16:29 Last Admin: 12/31/18 07:18 Dose: Not Given Morphine Sulfate (Morphine) 1 mg IVP Q4HR PRN PRN Reason: Pain (Moderate) Stop: 02/27/19 18:18 Morphine Sulfate (Morphine) 2 mg IVP Q4HR PRN PRN Reason: Pain (Severe) Stop: 02/27/19 18:19 Ondansetron HCl (Zofran) 4 mg IV Q4H PRN PRN Reason: Nausea / Vomiting Stop: 02/27/19 19:25 Pantoprazole Sodium (Protonix) 40 mg IVP DAILY [facility] Stop: 02/28/19 20:59 Last Admin: 12/31/18 08:57 Dose: 40 mg Physical Exam: 58 y/o male patient was admitted due to abdominal pain, constipation and weakness. General: weak HEENT: NC/AT Neck: Supple Lungs: CTAB Cardiovascular: RRR, Normal S1 Abdomen: tender, distended Extremities: clear Neurological: no change Internal Medicine Assmt/Plan - Assessment Assessment: Abdominal pain. Constipation. Weakness. Diabetes. - Plan Plan: Continuation of care. Monitor Vitals and Labs. Continue present meds as directed. Accu-check daily, Continue DM meds as directed. Monitor Diet/Nutritional support. Pain Management. Supportive care. Fall precaution, frequent nursing rounds, and as needed restraints to prevent fall. Continue collaborating with consulting specialists, case management and nursing team. Will Monitor patient and continue current treatment plan as ordered. Nutritional Asmnt/Malnutr-PDOC - Dietary Evaluation Malnutrition Findings (Please click <Entered> for more info): Nutritional Asmnt/Malnutrition Start: 12/30/18 17: 01 Text: Status: Active Freq: Protocol: Document 12/30/18 17:01 SO (Rec: 12/30/18 17:05 SO [email or web address]) Nutritional Asmnt/Malnutrition Patient General Information Nutritional Screening High Risk Diagnosis DIZZINESS Pertinent Medical Hx/Surgical Hx DM Subjective Information HIGH RISK INITIAL NUTRITION SCREENING FOR HIGH GLUCOSE LEVEL. PATIENT IS A 58 Y/O Male FROM HOME ADMITTED ON 12/29/2018 WITH DIZZINESS. BMI: 25.3 KG/M2 (OVERWEIGHT) IBW: 67.3 KG %IBW: 109% CURRENT DIET: NPO, CL LIQUID AT DINNER JC SCORE: 20 SKIN: INTACT LAST BM: 12/29 X 1 ESTIMATED NEEDS ARE BASED ON ACTUAL BODY WEIGHT 73.6 KG CALORIES: 1980-2767 KCAL/DAY ( 25-30 KCAL/KG) PROTEIN: 59-73 GM PRO/DAY (0.8 -1 G/KG) FLUID: 1399-0594 ML/DAY (1 ML /KCAL) Current Diet Order/ Nutrition Support NPO Patient / S.O Can Pertinent Medications DULCOLAX, D5-0.45NS, HUMALOG, PROTONIX Pertinent Labs 12/30 NA 135, GLUCOSE 286 POC GLUCOSE(LAST 24 HRS): 238, 254 Nutritional Hx/Data Height 1.7 m Height (Calculated Centimeters) 170.2 Current Weight (lbs) 73.482 kg Weight (Calculated Kilograms) 73.5 Weight (Calculated Grams) 69463.0 [place] Body Weight 67.3 % [place] Body Weight 109 Body Mass Index (BMI) 25.3 Weight Status Approriate Estimated Nutritional Goals BEE in Kcals: Using Current wt Calories/Kcals/Kg 25-30 Kcals Calculated 3066-0408 Protein: Using Current wt Protein g/k.8-1 Protein Calculated 59-73 Fluid: ml 1.8-2.2 L/DAY (1 ML KCAL) Nutritional Problem 1. Problem Problem INADEQUATE ENERGY INTAKE Etiology R/T MEDICAL CONDIITON Signs/Symptoms: AEB NPO STATUS Intervention/Recommendation Comments 1. Continue with NPO diet as ordered. Continue monitor glucose level and consider adding CCHO diet when patients tolerate oral intake. 2. Monitor PO intake, wt, labs and skin integrity RD TO FOLLOW-UP IN 3-5 DAYS PATIENT IS MODERATE RISK. Expected Outcomes/Goals Expected Outcomes/Goals RD TO F/UP IN 3-5 DAYS, MONITOR NPO STATUS, WEIGHT, SKIN INTEGRITY, LABS DIETITIAN WILL MONITOR NPO STATUS, NUTRITION-RELATED LABS TRENDING WNL, SKIN INTEGRITY, WEIGHTS, GI FUNCTION. DISCHARGE PLAN:PATIENT CURRENTLY NPO, WILL REASSESS AT RD FOLLOW-UP. ADA YU RD
--- NOTE | 2018-12-31 13:48 | Operative Report ---
DATE OF SURGERY: 12/31/2018 PROCEDURE: 1. Esophagogastroduodenoscopy with biopsy. 2. Colonoscopy with biopsy. PREOPERATIVE DIAGNOSES: 1. Abdominal pain. 2. Change in bowel habits. POSTPROCEDURE DIAGNOSES: 1. Upper endoscopy showing small hiatal hernia; mild gastritis, status post biopsy and CLOtest; normal duodenum, status post biopsies to rule out celiac disease. 2. Colonoscopy showing 2 sigmoid and ascending colon polyp, excised by biopsy forceps; small internal hemorrhoids. INDICATIONS: A 58-year-old male undergoing upper endoscopy and colonoscopy for vague abdominal pain and change of bowel habits. He also had some nausea and vomiting on admission. A CT showed copious stool throughout the colon, bladder wall thickening, mildly prominent prostate gland and mildly distended gallbladder. CONSENT: Informed consent was obtained from the patient prior to the procedure after explaining risks, benefits and alternatives including but not limited to infection, bleeding, perforation and . SEDATION: Monitored anesthesia care by Dr. Zayas. DESCRIPTION OF PROCEDURE AND FINDINGS: The procedure took place as an inpatient in the GI suite of [facility]. The patient was kept in a lithotomy position. Adequate sedation was achieved with above medications. Initially, an upper endoscopy was performed followed by colonoscopy. An Olympus diagnostic upper endoscope was advanced via the patient's mouth and at the esophagus. The esophagus appeared normal with no evidence of esophagitis, stricture or mass lesions. The Z line was normal appearing at 40 cm from the gums. Retroflexion in the stomach revealed a small 1 cm hiatal hernia. No GE junction mass or varices were identified. Mild gastritis was identified in the antrum. Biopsy obtained from antrum and mid body and submitted for CLOtest. The pyloric channel and duodenum up the second portion appeared normal. Random biopsies were obtained from antrum and mid body submitted for CLOtest. The pyloric channel and duodenum up to the second portion appeared normal and biopsies were obtained from second portion to rule out celiac disease. Scope was then withdrawn from the patient. The patient was then repositioned and colonoscopy performed. Rectal examination revealed normal sphincter tone with no rectal masses. An Olympus colonoscope was advanced via the patient's anus and into the rectum with ease. It was advanced up to the cecum, which was visualized by landmarks of ileocecal valve and appendiceal orifice. The quality of the bowel preparation was good. The scope was slowly withdrawn and underlying colonic mucosa examined in further detail. The approximate scope withdrawal time from cecum to anus was about 8 minutes. Two 5 mm polyps in the proximal ascending colon and distal sigmoid colon excised by biopsy forceps. Retroflexion in the rectum revealed small internal hemorrhoids. No mass lesions, colitis or angiodysplasias or diverticula were identified. The scope was then withdrawn. The patient tolerated the procedure well and no complications are anticipated. RECOMMENDATIONS: GERD. 1. Gastritis and high fiber diet. 2. Follow up biopsy results. 3. Antiemetics and antacids as needed. 4. Stool softeners as needed. 5. Disposition as per hospitalist. Thank you, Dr. Donaldo Gan for involving us in the care of your patient. If you have any further questions, please call us. JOB# [id number]
--- NOTE | 2019-01-01 03:31 | Consultation ---
DATE OF CONSULTATION: 12/31/2018 HISTORY OF PRESENT ILLNESS: A 58-year-old male admitted with complaints of abdominal discomfort and cramp, diarrhea. The patient with nausea and vomiting. He also complains of dizziness, feeling of weakness and tiredness. The patient says that the dizziness was somewhat better. The patient's main problem seems to be abdominal discomfort, nausea, vomiting, and diarrhea. The patient says not much dizziness at the moment. The patient has no diplopia. No problem with speech. PAST MEDICAL HISTORY: Diabetes. MEDICATIONS: Per reconciliation. SURGERIES: None. PHYSICAL EXAMINATION: VITAL SIGNS: Temperature 98.2, blood pressure 130/70, pulse is 74. NECK: Supple. No neck bruits. HEART: Normal heart sounds. LUNGS: Clear. NEUROLOGIC: Awake, alert. Speech is normal. The patient is answering questions. No nystagmus, no facial weakness. [id number] normal. Gait is normal. Reflexes are 1+. ASSESSMENT: The patient with abdominal pain, initially constipation and now some diarrhea. The patient with nausea and vomiting, seems like predominantly gastrointestinal issues. No definite neurological. At the moment, no further workup. We will monitor. JOB# [id number]
--- NOTE | 2019-01-03 15:22 | Pathology Report ---
12/31/2018 [id number] Collection Date: 12/31/2018 Surgeon: Dr. Damion Caceres. Specimen Description: 1. Duodenum biopsy. 2. Antrum biopsy. 3. Ascending colon polyp. 4. Sigmoid colon polyp. Gross Description: Part I: Received in formalin are two blair soft tissue fragments ranging from 0.1 to 0.2 cm in greatest dimension. Totally submitted in one cassette labeled A. Gross Description: Part II: Received in formalin is a 0.2 cm blair soft tissue fragment. Totally submitted in one cassette labeled B. Gross Description: Part III: Received in formalin are two blair soft tissue fragments ranging from 0.1 to 0.2 cm in greatest dimension. Totally submitted in one cassette labeled C. Gross Description: Part IV: Received in formalin are two blair soft tissue fragments ranging from 0.1 to 0.2 cm in greatest dimension. Totally submitted in one cassette labeled D. Microscopic Description: Part I: The histologic sections show duodenal mucosa with intact intestinal villi, showing no evidence for villous abnormality. Diagnosis: Part I: No evidence for celiac disease/sprue (duodenal biopsy). Microscopic Description: Part II: The histologic sections show gastric mucosa with chronic inflammation present consisting of lymphocytes and plasma cells. The Giemsa stain shows no evidence for Helicobacter pylori. Diagnoses: Part II: 1. Chronic gastritis, antrum biopsy. 2. The Giemsa stain is negative for Helicobacter pylori. Microscopic Description: Part III: The histologic sections show colon mucosa with nonspecific chronic inflammation present consisting of slightly increased numbers of lymphocytes and plasma cells. There is no evidence for ulceration or atypia. Diagnosis: Part III: Mild nonspecific chronic inflammation, ascending colon biopsy. Microscopic Description: Part IV: The histologic sections show colon mucosa with hyperplastic glandular changes present, consistent with benign hyperplastic polyp. Diagnosis: Part IV: Benign hyperplastic polyp, sigmoid colon. [facility]# [id number]
== END 2018-12-31 14:25 | disposition home or self-care (01) | DRG 377 ==
LOC: ER 12:18 → MSI 16:28 → TELE 16:43
PROVIDERS: ADMIT Internal Medicine; ATTEND Internal Medicine
PROC: 0DB98ZX Excision of Duodenum, Via Natural or Artificial Opening Endoscopic, Diagnostic (ICD-10-PCS; principal; 2018-12-31)
PROC: 0DB78ZX Excision of Stomach, Pylorus, Via Natural or Artificial Opening Endoscopic, Diagnostic (ICD-10-PCS; 2018-12-31)
PROC: 0DBK8ZX Excision of Ascending Colon, Via Natural or Artificial Opening Endoscopic, Diagnostic (ICD-10-PCS; 2018-12-31)
PROC: 0DBN8ZX Excision of Sigmoid Colon, Via Natural or Artificial Opening Endoscopic, Diagnostic (ICD-10-PCS; 2018-12-31)
DX: K29.71 Gastritis, unspecified, with bleeding (principal); E11.00 Type 2 diabetes mellitus with hyperosmolarity without nonketotic hyperglycemic-hyperosmolar coma (NKHHC); K44.1 Diaphragmatic hernia with gangrene; N39.0 Urinary tract infection, site not specified; K59.00 Constipation, unspecified; E78.5 Hyperlipidemia, unspecified; I10 Essential (primary) hypertension; E87.6 Hypokalemia; E86.0 Dehydration; K52.9 Noninfective gastroenteritis and colitis, unspecified; K63.5 Polyp of colon; K64.8 Other hemorrhoids
CPT/HCPCS: 36415-UA; 71045-TC; 80048-TC; 80053-TC; 80061-TC; 81001-TC; 82150-TC; 82550-TC; 82948-90; 83036-90; 83690-TC; 83880-TC; 84484-TC; 85025-TC; 85379-TC; 85610-TC; 87086-90; 87338-TC; 93005; 94760; 96374; 96375; C9113; J0696; J1815; J2405; J2704; J7030; Z7610